=== PATIENT | male | born 1990 | race Caucasian/White ===

== ENCOUNTER 2019-08-18 11:22 | Emergency (ER) | payer BC ==
[2019-08-18] MEDS ORDERED: Lidocaine 1% 30 ML SDV INJECT ONE (12:05)
[2019-08-18] MEDS ORDERED: Bacitracin Oint 1 GM U/D Packet TOP ONE (12:05)
--- NOTE | 2019-08-18 14:11 | EDM.PDOC ---
ED HPI GENERAL MEDICAL PROBLEM - General Chief Complaint: Laceration Stated Complaint: LACERATION ON FINGER Time Seen by Provider: 08/18/19 13:45 Source of Information: Reports: Patient, RN Notes Reviewed History Limitations: Reports: No Limitations - History of Present Illness INITIAL COMMENTS - FREE TEXT/NARRATIVE: ED with report of cut to left thumb while sharpening clean kitchen knife. Tetnus current in 2014. Bleeding controlled - Related Data Allergies Allergy/AdvReac Type Severity Reaction Status Date / Time No Known Allergies Allergy Verified 08/18/19 11:42 Home Meds: Home Meds . [No Known Home Meds] 08/18/19 [History] Past Medical History HEENT History: Reports: None Cardiovascular History: Reports: None Respiratory History: Reports: None Genitourinary History: Reports: None Musculoskeletal History: Reports: Other (See Below) Other Musculoskeletal History: broken wrist, toe, finger Neurological History: Reports: None Psychiatric History: Reports: None Endocrine/Metabolic History: Reports: None Hematologic History: Reports: None Immunologic History: Reports: None Oncologic (Cancer) History: Reports: None Dermatologic History: Reports: None - Infectious Disease History Infectious Disease History: Reports: None - Past Surgical History Head Surgeries/Procedures: Reports: None GI Surgical History: Reports: Hernia, Inguinal Social & Family History - Family History Family Medical History: Noncontributory - Caffeine Use Caffeine Use: Reports: None - Alcohol Use Days Per Week of Alcohol Use: 7 Number of Drinks Per Day: 2 Total Drinks Per Week: 14 - Recreational Drug Use Recreational Drug Use: No ED ROS GENERAL - Review of Systems Review Of Systems: Comprehensive ROS is negative, except as noted in HPI. ED EXAM, SKIN/RASH Exam: See Below Exam Limited By: No Limitations General Appearance: Alert, No Apparent Distress Eye Exam: Bilateral Eye: EOMI Ears: Normal External Exam Nose: Normal Inspection Throat/Mouth: Normal Inspection Head: Atraumatic, Normocephalic Neck: Normal Inspection Respiratory/Chest: Normal Breath Sounds Cardiovascular: Normal Peripheral Pulses Neurological: Alert, Oriented Skin: Warm, Normal Color, Wound/Incision (left thumb) Location, Skin: Other (base left thumb at web 1cm horizontal laceration) Associated features: Warmth, Tenderness ED SKIN PROCEDURES - Laceration/Wound Repair Left Proximal Digit - 1st (Thumb) Appearance: Superficial Distal NVT: Neuro & Vascular Intact Anesthetic Type: Local Local Anesthesia - Lidocaine (Xylocaine): 1% Plain Local Anesthetic Volume: 1cc Skin Prep: Chlorhexidine (Hibiciens), Saline Closed with: Sutures Lac/Wound length In cm: 1 Suture Size: 4-0 # of Sutures: 2 Suture Type: Nylon, Interrupted Course - Vital Signs Last Recorded V/S: Last Vital Signs Temp 98.2 F 08/18/19 11:42 Pulse 84 08/18/19 11:42 Resp 16 08/18/19 11:42 BP 161/96 H 08/18/19 11:42 Pulse Ox 98 08/18/19 11:42 - Orders/Labs/Meds Meds: Medications Discontinued Medications Generic Name Dose Route Start Last Admin Trade Name Freq PRN Reason Stop Dose Admin Bacitracin 1 dose 08/18/19 12:05 08/18/19 12:10 Bacitracin Oint 1 Gm TOP 08/18/19 12:06 1 dose ONETIME ONE Administration Lidocaine HCl 30 ml 08/18/19 12:05 08/18/19 12:10 Xylocaine-Mpf 1% INJECT 08/18/19 12:06 30 ml ONETIME ONE Administration Departure - Departure Time of Disposition: 14:10 Disposition: Home, Self-Care 01 Condition: Good Clinical Impression: Broken skin - Discharge Information *PRESCRIPTION DRUG MONITORING PROGRAM REVIEWED*: No *COPY OF PRESCRIPTION DRUG MONITORING REPORT IN PATIENT STEPHEN: No Instructions: Laceration Care, Adult, [id number] Referrals: Colleen Smalls NP [Primary Care Provider] - Forms: ED Department Discharge Additional Instructions: Keep clean wash with soap and water at least twice daily tylenol for discomfort sutures out in 10-14 days keep area covered while at work follow up if redness drainage or swelling Sepsis Event Note - Evaluation Sepsis Screening Result: No Definite Risk - Focused Exam Date Exam was Performed: 08/19/19 Time Exam was Performed: 15:30
== END 2019-08-18 14:18 | disposition home or self-care (01) ==
LOC: EDBD → DL.ED 11:22
DX: S61.012A Laceration without foreign body of left thumb without damage to nail, initial encounter (principal); W26.0XXA Contact with knife, initial encounter
CPT/HCPCS: 12001; 99282; J2001

== ENCOUNTER 2020-11-24 16:30 | Emergency (ER) | payer BC ==
[2020-11-24 19:19] LABS: CHLORIDE,CL 100 mmol/L (98-107); SODIUM,NA 139 mmol/L (136-145)
[2020-11-24 19:21] LABS: ACETAMINOPHEN 0 ug/mL (10-30 (Therapeutic))
--- NOTE | 2020-11-24 19:48 | EDM.PDOCBH ---
ED HPI GENERAL MEDICAL PROBLEM - General Chief Complaint: Behavioral/Psych Stated Complaint: AMBULANCE Time Seen by Provider: 11/24/20 19:44 Source of Information: Reports: Patient, Police, Provider (Dr. Avilez), RN, RN Notes Reviewed, Other (Soha - Transportation Program Director at [facility]) History Limitations: Reports: No Limitations - History of Present Illness INITIAL COMMENTS - FREE TEXT/NARRATIVE: Flako is a 30 y/o male who presents to the ED via [place] [employer] following a welfare check at the request of his estranged . Per [place], the patient verbalized active suicidal ideation with a plan of hanging or poly-pharmacy overdose. Upon arrival the patient's GCS is 15, he is alert and oriented to all spheres. Upon interview the patient reports he "..said some things I shouldn't have said." The patient states he feels he has been unable to make positive changes in his life and feels his only worth is to provide money to other individuals. He works about 70-120 hours every week. He attest to drinking alcohol frequently, with a last drink this morning at approximately 0700. He denies tobacco use and notes he infrequently smokes marijuana. - Related Data Allergies Allergy/AdvReac Type Severity Reaction Status Date / Time No Known Allergies Allergy Verified 08/18/19 11:42 Home Meds: Home Meds . [No Known Home Meds] 08/18/19 [History] Past Medical History HEENT History: Reports: None Cardiovascular History: Reports: None Respiratory History: Reports: None Genitourinary History: Reports: None Musculoskeletal History: Reports: Other (See Below) Other Musculoskeletal History: broken wrist, toe, finger Neurological History: Reports: None Psychiatric History: Reports: None Endocrine/Metabolic History: Reports: None Hematologic History: Reports: None Immunologic History: Reports: None Oncologic (Cancer) History: Reports: None Dermatologic History: Reports: None - Infectious Disease History Infectious Disease History: Reports: None - Past Surgical History Head Surgeries/Procedures: Reports: None GI Surgical History: Reports: Hernia, Inguinal Social & Family History - Family History Family Medical History: No Pertinent Family History - Caffeine Use Caffeine Use: Reports: None - Alcohol Use Days Per Week of Alcohol Use: 7 Number of Drinks Per Day: 12 Total Drinks Per Week: 84 Date of Last Drink: 11/24/20 Time of Last Drink: 11:00 - Recreational Drug Use Recreational Drug Use: No ED ROS GENERAL - Review of Systems Review Of Systems: Comprehensive ROS is negative, except as noted in HPI. ED EXAM, BEHAVIORAL HEALTH - Physical Exam Exam: See Below Exam Limited By: No Limitations General Appearance: Alert, No Apparent Distress Eye Exam: Bilateral Eye: EOMI, Normal Inspection, PERRL (4mm) Ears: Normal External Exam, Normal Canal, Hearing Grossly Normal, Normal TMs Nose: Normal Inspection, Normal Mucosa, No Blood Throat/Mouth: Normal Inspection, Normal Lips, Normal Teeth, Normal Gums, Normal Oropharynx, Normal Voice, No Airway Compromise Head: Atraumatic, Normocephalic Neck: Normal Inspection, Supple, Non-Tender, Full Range of Motion Respiratory/Chest: No Respiratory Distress, Lungs Clear, Normal Breath Sounds, No Accessory Muscle Use, Chest Non-Tender Cardiovascular: Normal Peripheral Pulses, Regular Rate, Rhythm, No Edema, No Gallop, No JVD, No Murmur, No Rub GI/Abdominal: Normal Bowel Sounds, Soft, Non-Tender, No Distention, No Mass, Pelvis Stable (Male) Exam: Deferred Rectal (Males) Exam: Deferred Back Exam: Normal Inspection, Full Range of Motion Extremities: Normal Inspection, Normal Range of Motion, Non-Tender, No Pedal Edema, Normal Capillary Refill Neurological: Alert, Normal Mood/Affect, CN II-XII Intact, Normal Cognition, Normal Gait, Normal Reflexes, No Motor/Sensory Deficits, Oriented x 3 Psychiatric: Alert, Normal Affect, Normal Cognition, Oriented, Depressed Mood, Poor Eye Contact, Withdrawn, Suicidal Plan, Suicidal Thoughts. No: Uncooperative, Flight of Ideas, Homicidal Thoughts, Auditory Hallucinations, Visual Hallucinations, Grandiose Thoughts, Pressured Speech, Paranoid Thoughts, Threatening Behavior Skin Exam: Warm, Dry, Intact, Normal color, No rash. No: Ecchymosis, Erythema, Increased warmth, Mottled, Pallor, Petechiae COURSE, BEHAVIORAL HEALTH COMP - Course Vital Signs: Last Vital Signs Temp 97.7 F 11/24/20 18:40 Pulse 97 11/24/20 18:40 Resp 18 11/24/20 18:40 BP 156/100 H 11/24/20 18:40 Pulse Ox 99 11/24/20 18:40 Orders, Labs, Meds: Laboratory Tests 11/24/20 11/24/20 11/24/20 Range/Units 18:46 18:46 18:46 WBC 5.7 (5.0-10.0) 10^3/uL RBC 5.00 (4.6-6.2) 10^6/uL Hgb 16.5 (14.0-18.0) g/dL Hct 45.8 (40.0-54.0) % MCV 91.6 (80-100) fL MCH 33.0 (27.0-34.0) pg MCHC 36.0 H (33.0-35.0) g/dL Plt Count 297 (150-450) 10^3/uL Neut % (Auto) 67.9 (42.2-75.2) % Lymph % (Auto) 26.2 (20.5-50.1) % Moody % (Auto) 4.4 (2-8) % Eos % (Auto) 1.1 (1.0-3.0) % Baso % (Auto) 0.4 (0.0-1.0) % Sodium 139 (136-145) mmol/L Potassium 4.0 (3.5-5.1) mmol/L Chloride 100 (98-107) mmol/L Carbon Dioxide 27 (21-32) mmol/L Anion Gap 16.0 H (7-13) mEq/L BUN 8 (7-18) mg/dL Creatinine 1.10 (0.70-1.30) mg/dL Est Cr Clr Drug Dosing TNP Estimated GFR (MDRD) > 60 BUN/Creatinine Ratio 7.3 (No establ ref range) Glucose 115 H (70-99) mg/dL Calcium 9.0 (8.5-10.1) mg/dL Magnesium 2.0 (1.8-2.4) mg/dL Total Bilirubin 0.7 (0.2-1.0) mg/dL AST 51 H (15-37) U/L ALT 69 H (16-63) U/L Alkaline Phosphatase 72 (46-116) U/L Total Protein 8.0 (6.4-8.2) g/dL Albumin 4.5 (3.4-5.0) g/dL Globulin 3.5 Albumin/Globulin Ratio 1.3 TSH, Ultra Sensitive 0.78 (0.36-3.74) uIU/mL Salicylates < 2.8 L (2.8-20(Therapeutic)) mg/dL Acetaminophen 0 L (10-30 (Therapeutic)) ug/mL Ethyl Alcohol 151 (0) mg/dL SARS-CoV-2 RNA (MJ) (NEGATIVE) 11/24/20 Range/Units 19:12 WBC (5.0-10.0) 10^3/uL RBC (4.6-6.2) 10^6/uL Hgb (14.0-18.0) g/dL Hct (40.0-54.0) % MCV (80-100) fL MCH (27.0-34.0) pg MCHC (33.0-35.0) g/dL Plt Count (150-450) 10^3/uL Neut % (Auto) (42.2-75.2) % Lymph % (Auto) (20.5-50.1) % Moody % (Auto) (2-8) % Eos % (Auto) (1.0-3.0) % Baso % (Auto) (0.0-1.0) % Sodium (136-145) mmol/L Potassium (3.5-5.1) mmol/L Chloride (98-107) mmol/L Carbon Dioxide (21-32) mmol/L Anion Gap (7-13) mEq/L BUN (7-18) mg/dL Creatinine (0.70-1.30) mg/dL Est Cr Clr Drug Dosing Estimated GFR (MDRD) BUN/Creatinine Ratio (No establ ref range) Glucose (70-99) mg/dL Calcium (8.5-10.1) mg/dL Magnesium (1.8-2.4) mg/dL Total Bilirubin (0.2-1.0) mg/dL AST (15-37) U/L ALT (16-63) U/L Alkaline Phosphatase (46-116) U/L Total Protein (6.4-8.2) g/dL Albumin (3.4-5.0) g/dL Globulin Albumin/Globulin Ratio TSH, Ultra Sensitive (0.36-3.74) uIU/mL Salicylates (2.8-20(Therapeutic)) mg/dL Acetaminophen (10-30 (Therapeutic)) ug/mL Ethyl Alcohol (0) mg/dL SARS-CoV-2 RNA (MJ) Negative (NEGATIVE) Re-Assessment/Re-Exam: Case discussed with Dr. Will, emergency physician at [facility], who kindly agreed to accept patient for transfer. Discussed findings of mental health evaluation via S[facility] at [facility], adjusto writer operator's examination, and lab work with patient. Patient is immediately unwilling to transfer to high level of care for psychiatric evaluation and treatment. He states he is concerned he will be "..locked up for months." Following discussed with adjusto writer operator, patient willing to transfer for voluntary committal for suicidal ideation with intent. Departure - Departure Time of Disposition: 20:56 Disposition: DC/Tfer to Psych Hosp/Unit 65 Condition: Good Clinical Impression: Suicidal ideation, Suicidal intent - Discharge Information Referrals: PCP,None [Primary Care Provider] - Forms: ED Department Discharge, Interfacility Transfer MARILYN Sepsis Event Note (ED) - Evaluation Sepsis Screening Result: No Definite Risk - Focused Exam Vital Signs: Vital Signs Temp Pulse Resp BP Pulse Ox 11/24/20 18:40 97.7 F 97 18 156/100 H 99
== END 2020-11-24 21:54 ==
LOC: DL.ED 16:30
DX: F32.9 Major depressive disorder, single episode, unspecified (principal); Z20.822 Contact with and (suspected) exposure to COVID-19
CPT/HCPCS: 36415; 80053; 80143; 80179; 80307; 83735; 84443; 85025; 99284; 99285; U0002